=== PATIENT | female | born 1955 | race African-American/Black ===

== ENCOUNTER 2021-03-03 02:19 | Inpatient (IN) | payer OTHER ==
[~2021-03-03] VITALS: Ht 165.1 cm; Wt 69.4 kg
[2021-03-03] MEDS ORDERED: FUROSEMIDE 40MG/4ML VIAL IV ONE (03:30)
[2021-03-03 03:44] LABS: BASOPHILS % 0.5 % (0.0-2.0); HEMATOCRIT. 36.2 % (36.0-48.0); HEMOGLOBIN. 11.8 g/dL (12.0-16.0); LYMPHOCYTES % 22.9 % (20.0-50.0); MEAN CORPUSCULAR VOLUME 79.6 fL (81.0-99.0); MEAN PLATELET VOLUME 9.9 fl (7.4-10.4); MONOCYTES % 7.8 % (2.0-8.0); NEUTROPHILS % 66.8 % (40.0-76.0); PLATELET 146 x1000/uL (130-400); RED BLOOD CELL COUNT 4.54 mill/uL (4.2-5.4)
[2021-03-03 03:53] LABS: CHLORIDE 110 mEq/L (98-107)
[2021-03-03 04:42] LABS: CLARITY URINE CLEAR (CLEAR); COLOR URINE YELLOW (YELLOW); KETONES URINE TRACE (NEGATIVE); LEUKOCYTE ESTERASE URINE NEGATIVE (NEGATIVE); NITRITE URINE NEGATIVE (NEGATIVE); OCCULT BLOOD URINE 1+ (NEGATIVE); PH URINE 5.5 (4.5-8.0); PROTEIN URINE 2+ (NEGATIVE); SPECIFIC GRAVITY URINE 1.022 (1.005-1.030)
[2021-03-03] MEDS ORDERED: ASPIRIN 325MG EC TABLET PO ONE (05:00)
[2021-03-03] MEDS ORDERED: MORPHINE SULFATE 2 MG/ML CPJ (NOT FOR IM USE) IV ONE (05:00)
[2021-03-03] MEDS ORDERED: KETOROLAC 15MG/ML VIAL IV PRN (10:15)
[2021-03-03] MEDS ORDERED: DIPHENHYDRAMINE 50MG/ML VIAL IV PRN (10:15)
[2021-03-03] MEDS ORDERED: GUAIFENESIN 200MG/10ML SUGAR FREE UDC PO PRN (10:15)
[2021-03-03] MEDS ORDERED: ACETAMINOPHEN 325MG TABLET PO PRN ×2 (10:15)
[2021-03-03] MEDS ORDERED: DOCUSATE SODIUM 100MG CAPSULE PO PRN (10:15)
[2021-03-03] MEDS ORDERED: MAGNESIUM/ALUMINUM HYDROXIDE/SIMETHICONE 30ML UDC PO PRN (10:15)
[2021-03-03] MEDS ORDERED: ONDANSETRON HCL 4MG/2ML INJ IV PRN (10:15)
[2021-03-03] MEDS ORDERED: DEXTROSE 50% WATER 50ML SYRINGE IV PRN (10:15)
[2021-03-03] MEDS ORDERED: IPRATROPIUM/ALBUTEROL 0.5-3(2.5)MG/3ML NEB NEB PRN (10:15)
[2021-03-03] MEDS ORDERED: ZOLPIDEM TARTRATE 5MG TABLET PO PRN (10:15)
[2021-03-03] MEDS ORDERED: CLONIDINE 0.1MG TABLET PO PRN (10:15)
[2021-03-03] MEDS ORDERED: NALOXONE HCL 0.4MG/ML VIAL IV PRN (10:45)
[2021-03-03] MEDS: BLOOD SUGAR DIAGNOSTIC STRIP TEST SCH ×3 (11:30→20:32)
[2021-03-03] MEDS: FAMOTIDINE 20MG TABLET PO SCH (11:34)
[2021-03-03] MEDS: ENOXAPARIN 40MG/0.4ML SYR SUBCUT SCH (11:35)
[2021-03-03] MEDS: METOPROLOL TARTRATE 25MG TABLET PO SCH ×2 (11:35→20:30)
[2021-03-03] MEDS: INSULIN LISPRO 100 UNITS/ML SUBCUT SCH ×3 (13:33→20:32)
[2021-03-03 14:52] LABS: T4 FREE 1.1 ng/dL (0.76-1.46)
[2021-03-03 15:00] LABS: FOLIC ACID (FOLATE) SERUM 17.9 ng/mL (>5.38)
[2021-03-03 16:00] VITALS: BP 112/62
[2021-03-03] MEDS: SPIRONOLACTONE 25MG TABLET PO SCH (18:18)
[2021-03-03] MEDS: FUROSEMIDE 100MG/10ML VIAL IVP SCH (18:18)
[2021-03-03 20:00] VITALS: BP 125/71
[2021-03-03] MEDS: ATORVASTATIN CALCIUM 40MG TABLET PO SCH (20:30)
[2021-03-03] MEDS: TRAMADOL 50MG TABLET PO PRN (20:31)
[2021-03-03 21:00] LABS: CREATINE KINASE 57 IU/L (26-192)
[2021-03-03] MEDS ORDERED: FAMOTIDINE 20MG TABLET PO SCH (21:00)
[2021-03-03 21:01] LABS: CREATINE KINASE MB FRACTION 1.9 ng/mL (0.5-3.6)
[2021-03-04] VITALS: BP 125/80
[2021-03-04] MEDS: FUROSEMIDE 100MG/10ML VIAL IVP SCH ×2 (05:43→17:59)
[2021-03-04] MEDS: SPIRONOLACTONE 25MG TABLET PO SCH ×2 (05:49→17:59)
[2021-03-04 06:38] LABS: CHLORIDE 108 mEq/L (98-107)
[2021-03-04 06:48] LABS: CREATINE KINASE 45 IU/L (26-192)
[2021-03-04 06:51] LABS: CREATINE KINASE MB FRACTION 1.3 ng/mL (0.5-3.6)
[2021-03-04 06:59] LABS: BASOPHILS % 0.4 % (0.0-2.0); EOSINOPHILS % 2.6 % (0.0-5.0); HEMATOCRIT. 36.8 % (36.0-48.0); LYMPHOCYTES % 20.3 % (20.0-50.0); MEAN CORPUSCULAR VOLUME 79.5 fL (81.0-99.0); MEAN PLATELET VOLUME 10.1 fl (7.4-10.4); MONOCYTES % 9.3 % (2.0-8.0); NEUTROPHILS % 67.4 % (40.0-76.0); PLATELET 135 x1000/uL (130-400); RED BLOOD CELL COUNT 4.63 mill/uL (4.2-5.4); RED CELL DISTRIBUTION WIDTH 16.7 % (11.6-14.6)
[2021-03-04] MEDS: BLOOD SUGAR DIAGNOSTIC STRIP TEST SCH ×4 (07:01→20:24)
[2021-03-04] MEDS: INSULIN LISPRO 100 UNITS/ML SUBCUT SCH ×4 (07:50→20:24)
[2021-03-04 08:00] VITALS: BP 103/59
[2021-03-04] MEDS ORDERED: ASPIRIN 81MG TABLET PO SCH (09:00)
[2021-03-04] MEDS ORDERED: ASPIRIN 325MG EC TABLET PO SCH (09:00)
[2021-03-04 09:18] LABS: *AMPHETAMINES SCREEN URINE NEGATIVE (NEGATIVE); *BARBITURATES SCREEN URINE NEGATIVE (NEGATIVE); *BENZODIAZEPINES SCREEN URINE NEGATIVE (NEGATIVE); *COCAINE SCREEN URINE NEGATIVE (NEGATIVE)
[2021-03-04] MEDS: ENOXAPARIN 40MG/0.4ML SYR SUBCUT SCH (09:18)
[2021-03-04] MEDS: FAMOTIDINE 20MG TABLET PO SCH (09:18)
[2021-03-04] MEDS: CLOPIDOGREL 75MG TABLET PO SCH (09:18)
[2021-03-04 09:19] LABS: CANNABINOID URINE SCREEN NEGATIVE (NEGATIVE); METHADONE URINE SCREEN NEGATIVE (NEGATIVE); OPIATES URINE SCREEN NEGATIVE (NEGATIVE); PHENCYCLIDINE URINE SCREEN NEGATIVE (NEGATIVE)
[2021-03-04] MEDS: METOPROLOL TARTRATE 25MG TABLET PO SCH ×2 (09:19→20:24)
[2021-03-04] MEDS: TRAMADOL 50MG TABLET PO PRN (11:45)
[2021-03-04 12:15] VITALS: BP 125/77
[2021-03-04 16:00] VITALS: BP 125/79
[2021-03-04 20:22] VITALS: BP 91/50
[2021-03-04] MEDS: ATORVASTATIN CALCIUM 40MG TABLET PO SCH (20:23)
[2021-03-05] VITALS: BP 132/84
[2021-03-05 03:57] VITALS: BP 135/82
[2021-03-05] MEDS: FUROSEMIDE 100MG/10ML VIAL IVP SCH ×2 (05:55→19:06)
[2021-03-05] MEDS: SPIRONOLACTONE 25MG TABLET PO SCH ×2 (05:56→19:05)
[2021-03-05] MEDS: BLOOD SUGAR DIAGNOSTIC STRIP TEST SCH ×4 (06:53→21:30)
[2021-03-05] MEDS: INSULIN LISPRO 100 UNITS/ML SUBCUT SCH ×4 (07:50→21:00)
[2021-03-05 08:20] VITALS: BP 132/80
[2021-03-05] MEDS: CLOPIDOGREL 75MG TABLET PO SCH (08:31)
[2021-03-05] MEDS: METOPROLOL TARTRATE 25MG TABLET PO SCH ×2 (08:31→21:42)
[2021-03-05] MEDS: FAMOTIDINE 20MG TABLET PO SCH (08:31)
[2021-03-05] MEDS: ENOXAPARIN 40MG/0.4ML SYR SUBCUT SCH (08:34)
[2021-03-05 12:05] VITALS: BP 132/50
[2021-03-05 20:00] VITALS: BP 136/86
[2021-03-05] MEDS: ATORVASTATIN CALCIUM 40MG TABLET PO SCH (21:42)
[2021-03-06] VITALS: BP 110/66
[2021-03-06 04:00] VITALS: BP 120/67
[2021-03-06] MEDS: SPIRONOLACTONE 25MG TABLET PO SCH ×2 (05:57→17:50)
[2021-03-06] MEDS: FUROSEMIDE 100MG/10ML VIAL IVP SCH ×2 (05:57→17:50)
[2021-03-06] MEDS: BLOOD SUGAR DIAGNOSTIC STRIP TEST SCH ×4 (06:35→21:00)
[2021-03-06] MEDS: INSULIN LISPRO 100 UNITS/ML SUBCUT SCH ×4 (07:50→21:00)
[2021-03-06 08:00] VITALS: BP 109/66
[2021-03-06] MEDS: CLOPIDOGREL 75MG TABLET PO SCH (08:57)
[2021-03-06] MEDS: METOPROLOL TARTRATE 25MG TABLET PO SCH ×2 (09:00→20:59)
[2021-03-06] MEDS: FAMOTIDINE 20MG TABLET PO SCH (09:01)
[2021-03-06] MEDS: ENOXAPARIN 40MG/0.4ML SYR SUBCUT SCH (09:01)
[2021-03-06 12:00] VITALS: BP 132/78
[2021-03-06 16:00] VITALS: BP 119/69
[2021-03-06 20:00] VITALS: BP 144/85
[2021-03-06] MEDS: ATORVASTATIN CALCIUM 40MG TABLET PO SCH (20:59)
[2021-03-07] VITALS: BP 111/63
[2021-03-07 04:00] VITALS: BP 98/62
[2021-03-07] MEDS: FUROSEMIDE 100MG/10ML VIAL IVP SCH (05:45)
[2021-03-07] MEDS: SPIRONOLACTONE 25MG TABLET PO SCH (05:46)
[2021-03-07] MEDS: BLOOD SUGAR DIAGNOSTIC STRIP TEST SCH ×2 (06:53→12:23)
[2021-03-07] MEDS: INSULIN LISPRO 100 UNITS/ML SUBCUT SCH ×2 (07:50→12:23)
[2021-03-07 08:00] VITALS: BP 110/75
[2021-03-07] MEDS: METOPROLOL TARTRATE 25MG TABLET PO SCH (09:07)
[2021-03-07] MEDS: ENOXAPARIN 40MG/0.4ML SYR SUBCUT SCH (09:07)
[2021-03-07] MEDS: FAMOTIDINE 20MG TABLET PO SCH (09:07)
[2021-03-07] MEDS: CLOPIDOGREL 75MG TABLET PO SCH (09:08)
[2021-03-07] MEDS ORDERED: SPIR25TA PO (11:04)
[2021-03-07] MEDS ORDERED: FURO-151 PO (11:05)
[2021-03-07 11:07] VITALS: BP 106/72
[2021-03-07 12:00] VITALS: BP 106/72
[2021-03-08] MEDS ORDERED: ENOXAPARIN 30MG/0.3ML SYR SUBCUT SCH (09:00)
== END 2021-03-07 14:53 | disposition home or self-care (01) | DRG 291 ==
LOC: ER 02:19 → MICUSO 05:29 → 6WST 14:27
PROVIDERS: ADMIT Internal Medicine; ATTEND Internal Medicine
DX: I11.0 Hypertensive heart disease with heart failure (principal); J96.01 Acute respiratory failure with hypoxia; E44.0 Moderate protein-calorie malnutrition; I50.43 Acute on chronic combined systolic (congestive) and diastolic (congestive) heart failure; I42.0 Dilated cardiomyopathy; I25.10 Atherosclerotic heart disease of native coronary artery without angina pectoris; E11.9 Type 2 diabetes mellitus without complications; T50.1X6A Underdosing of loop [high-ceiling] diuretics, initial encounter; I27.20 Pulmonary hypertension, unspecified; Z20.822 Contact with and (suspected) exposure to COVID-19; R07.89 Other chest pain; Z82.49 Family history of ischemic heart disease and other diseases of the circulatory system; Z95.1 Presence of aortocoronary bypass graft; Z95.810 Presence of automatic (implantable) cardiac defibrillator; Y92.89 Other specified places as the place of occurrence of the external cause; Z86.73 Personal history of transient ischemic attack (TIA), and cerebral infarction without residual deficits; Z79.899 Other long term (current) drug therapy; Z79.02 Long term (current) use of antithrombotics/antiplatelets; V29.9XXA Motorcycle rider (driver) (passenger) injured in unspecified traffic accident, initial encounter; Y93.89 Activity, other specified; Y99.8 Other external cause status; Y92.410 Unspecified street and highway as the place of occurrence of the external cause; Z79.4 Long term (current) use of insulin; Z68.25 Body mass index [BMI] 25.0-25.9, adult
CPT/HCPCS: 36415; 71045; 72070; 72100; 80048; 80053; 80061; 80305; 81003; 82550; 82553; 82607; 82746; 82962; 83036; 83540; 83550; 83735; 83880; 84100; 84145; 84439; 84443; 84484; 85025; 87426; 93005; 93306; 93970; 97162; 99285; J1650; J1815; J1885; J1940; J2270; A4315